=== PATIENT | female | born 1970 | race Caucasian/White ===

== ENCOUNTER 2023-12-28 14:09 | Outpatient (AMB) | payer MEDICARE, MEDICAID, SELFPAY ==
--- NOTE | 2023-12-28 14:14 | A.OFFVIS_ITS ---
Vital Signs 12/28/23 14:29 Height 5 ft 0.5 in Weight 275 lb 8 oz BMI 52.9 BP 150/80 H Blood Pressure Location Lt brachial Position Sitting Respiration 17 Pulse 66 Pulse Source Pulse Oximeter Pulse Oximetry (%) 95 Oxygen Delivery Method Room Air Intake Visit Reasons: Bilateral Genicular Nerve Cryoblation for knee Intake Note: Patient comes in for initial visit was referred by [facility] primary care. Reports pain 8-9/10. Allergies Sulfa (Sulfonamide Antibiotics) Allergy (Unknown, Verified 12/28/23 14:18) Rash HPI Comments Details: Ines is very pleasant 53 years old female who is in my office today with complains on pain in bilateral knees left more than the right. She reports that her pain started 10 years ago. She reported that she had tear of the ligament in the left knee. She had arthroscopy surgery on the left knee. She reports today that her pain is 8 to of 10 more on the left and less on the right. She can not sleep normally because of her pain but she can not do activities of daily living she can not take care of herself she can not plus-minus function normally. 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 She is on permanent disability because of multiple sclerosis. Heat applications and cold applications aggravate her pain. No pain alleviation from topical medication she is taking large doses of the Tylenol 1500 mg twice a day. She never tried NSAIDs. She tried Aspercreme with lidocaine without success. She reports her pain in terms of tissue damage as pulsing, throbbing, pounding, shooting, stabbing, lancinating, sharp, cutting, lacerating, dull, hurting, aching, heavy, tiring, exhausting. She had x-ray of the bilateral knees and results are dictated as below. She had physical therapy several times the last one 7 years ago and it did not alleviate her pain at all. In fact patient reports that physical therapy aggravated her pain to the point that today patient is refusing even to hear about physical therapy. She received no chiropractic manipulations she did not have any massage therapy, she did not try any homeopathic or herbal medications. She received steroid knee injections initially they were successful to treat her pain in the knee however later on those became ineffective. She received viscoelastic injections in bilateral knees without success. She is suffering from multiple sclerosis no other past medical history. She had knee arthroscopy as dictated above she denies smoking cigarettes denies drinking alcohol denies caffeinated beverages denies soda denies recreational drugs. [facility] Family History (Updated 12/28/23 @ 14:26 by Brenna Guthrie) Mother Skin cancer Breast cancer Maternal Aunt Breast cancer Maternal Uncle Cancer Father MS (mitral stenosis) Social History (Updated 12/28/23 @ 14:20 by Brenna Guthrie) Alcohol intake: current Patient Tobacco Use Status: Never used Tobacco Review of Systems Const Denies chills, Reports excessive sweating, Denies fatigue, Denies fever(s) and Reports weight gain Eyes Denies blurry vision, Denies exophthalmos and Denies diplopia ENT Reports Normal hearing present, Denies vertigo and Denies dizziness Card Denies chest pain, Denies chest pain at rest, Denies chest pain with activity, Reports diaphoresis, Denies syncope, Denies rapid heart rate, Denies pedal edema and Denies edema Resp Denies chest congestion, Denies cough, Denies hemoptysis, Denies excessive phlegm production, Denies pain on inspiration and Denies pain with cough GI Denies abdominal pain, Denies belching, Denies melena and Denies bloating Denies urinary incontinence Musc Denies as per HPI and Denies back pain Neuro Reports Normal hearing present, Denies Abnormal speech present, Denies confusion, Denies vertigo, Denies dizziness, Denies syncope, Denies lack of coordination and Denies Sensory deficit (Neuro) Psych Denies no additional complaints, Denies confusion and Denies depression Endo Denies deepening of the voice, Reports excessive sweating, Denies fatigue and Denies polyuria Physical Exam Vital Signs: Last Vital Signs Pulse 66 12/28/23 14:29 Resp 17 12/28/23 14:29 BP 150/80 H 12/28/23 14:29 Pulse Ox 95 12/28/23 14:29 Oxygen Delivery Method Room Air 12/28/23 14:29 BMI result Body Mass Index 52.9 Const General: No confusion Nutritional Appearance: obese morbidly obese Orientation/consciousness: No confusion Eyes General: appearance normal, both eyes and all related structures Pupils: Equal, round and reactive pupils present EOM: EOMs intact bilaterally Neck Neck: Yes full ROM Chest Chest palpation & inspection: normal inspection of the chest Resp Effort & Inspection: normal respiratory effort, able to speak in complete sentences, normal respiratory pattern, no audible wheezes and no cough Cardio Jugular venous distension: no JVD GI Inspection: Yes normal to inspection Neuro General: No confusion Cranial nerves: Yes Equal, round and reactive pupils present and Yes Normal hearing present Speech: No Abnormal speech present Gait exam (Neuro): Normal gait present Motor exam (neuro): 5/5 motor strength present throughout Sensory Exam: No Sensory deficit (Neuro) Extrem Other: Bilateral knee inspections the skin of the knees intact without rashes or lesions. Varus deformity bilaterally range of motion is preserved bilaterally however painful. Stress varus exhibit no changes bilaterally but valgus stress shows laxity. Anterior posterior drawers are intact. Tenderness on palpation on the medial side of the joint on the left no pain with external or internal rotation of the hip. On the right knee tenderness along the medial joint line. No pain with patellar compression on translation. General: No pedal edema Psych Speech and movement: Normal speech and movement present Affect: normal affect Attitude: cooperative Thought process: Normal thought process present Thought content: Normal thought content present Insight: Good insight present (Psych) Judgement: Good judgement present (Psych) Results Reviewed Results Reviewed: Knee x-ray 08/08/2023 findings: Severe narrowing through the medial compartment of bilateral knees, slightly greater on the left as compared to the right. Elizondo view shows [id number] articulation medial compartment both knees, moderate narrowing throughout the patellofemoral compartment with marginal osteophyte formation. Impression: Severe medial compartment DJD bilateral knees. Assessment & Plan Assessment & Plan (1) Osteoarthritis of knees, bilateral: Code(s): M17.0 - Bilateral primary osteoarthritis of knee Category: Medical (2) Bilateral knee pain: Code(s): M25.561 - Pain in right knee; M25.562 - Pain in left knee Category: Medical (3) Chronic pain syndrome: Code(s): G89.4 - Chronic pain syndrome Category: Medical Plan Brochures on sprint PNS and cure on X PNS were given to the patient. The nature of the procedures were explained to the patient. RFA also was explained to the patient. Nature of the intra-articular PRP injection was explained to the patient. The patient will not be able to afford PRP. RFA details were carefully explained to the patient. After that patient decided to go for neuromodulation right away. I will schedule the patient for diagnostic left infrapatellar saphenous nerve block to find if she will be eligible for sprint PNS versus cure on X PNS. The follow-up appointment will be scheduled immediately with the diagnostic injection. I can try to start her on Celebrex she reported that she never took Celebrex before. I requested her to ask her new neurologist who treats her multiple sclerosis to decide whether or not Celebrex is contraindicated for her condition. If it is not I will send Celebrex prescription. Patient Instructions: I here by testify that I spent 45 minutes in conversation with this patient as well as planning her care evaluating her prior records and organizing this note. Coding Level of Care Code New Pt Level 4 (02106) Diagnoses Osteoarthritis of knees, bilateral M17.0 Bilateral knee pain M25.561; M25.562 Chronic pain syndrome G89.4
[2023-12-28 14:29] VITALS: BP 150/80; PULSE 66; RESP 17; O2SAT 95; BMI 52.9
== END 2023-12-28 14:49 | disposition home or self-care (01) ==
PROVIDERS: Visit Provider Anesthesiology
DX: M17.0 Bilateral primary osteoarthritis of knee (principal); M25.561 Pain in right knee; M25.562 Pain in left knee; G89.4 Chronic pain syndrome
CPT/HCPCS: 99204

== ENCOUNTER → 2023-12-28 14:09 | Outpatient (BNVA) | payer MEDICARE, MEDICAID, SELFPAY | PROVIDERS: Visit Provider Anesthesiology | DX: M17.0 Bilateral primary osteoarthritis of knee (principal); M25.561 Pain in right knee; M25.562 Pain in left knee; G89.4 Chronic pain syndrome | CPT/HCPCS: 99202 ==

== ENCOUNTER 2024-03-06 06:27 | Outpatient (REF) | payer MEDICARE, MEDICAID, SELFPAY ==
--- NOTE | ~2024-03-06 | FL_ITS ---
EXAMINATION: XR FLUOROSCOPY WITH IMAGES CLINICAL INFORMATION: Primary osteoarthritis of bilateral knee COMPARISON: None available. TECHNIQUE: Fluoroscopy provided to: Dr. Jimenez Fluoroscopy time: 0.2 minutes DAP: 0.0480 mGycm2 Images: 2 FINDINGS: AP and lateral spot views left knee during pes anserine bursal injection. FL/FL guidance in treatment room IMPRESSION: Fluoroscopic guidance. Please refer to the full operative report for details. Electronically signed by: Forrest Deleon MD 05/04/2024 02:18 PM EDT
== END 2024-03-06 06:28 | disposition home or self-care (01) ==
LOC: CF 06:27
PROVIDERS: Visit Provider Anesthesiology
DX: M17.0 Bilateral primary osteoarthritis of knee (principal); G89.4 Chronic pain syndrome
CPT/HCPCS: 64450; J2795

== ENCOUNTER 2024-03-06 11:02 | Outpatient (AMB) | payer MEDICARE, MEDICAID, SELFPAY ==
--- NOTE | 2024-03-06 11:02 | A.OFFVIS_ITS ---
Vital Signs 03/06/24 11:10 03/06/24 13:37 Height 5 ft 0.5 in Weight 275 lb BMI 52.8 BP 161/90 H 152/88 H Blood Pressure Location Lt radial Lt brachial Position Sitting Sitting Respiration 16 16 Pulse 70 65 Pulse Source Pulse Oximeter Pulse Oximeter Pulse Oximetry (%) 98 98 Oxygen Delivery Method Room Air Room Air Comment Pre-Op post-op Intake Visit Reasons: LEFT INFRAPATELLAR SNB Contracts Administrator Required: No Accompanied by: Self / Same As Patient Allergies Sulfa (Sulfonamide Antibiotics) Allergy (Unknown, Verified 03/06/24 11:22) Rash PFSH Family History (Updated 12/28/23 @ 14:26 by Brenna Guthrie) Mother Skin cancer Breast cancer Maternal Aunt Breast cancer Maternal Uncle Cancer Father MS (mitral stenosis) Social History (Updated 12/28/23 @ 14:20 by Brenna Guthrie) Alcohol intake: current Patient Tobacco Use Status: Never used Tobacco Physical Exam Vital Signs: Last Vital Signs Pulse 65 03/06/24 13:37 Resp 16 03/06/24 13:37 BP 152/88 H 03/06/24 13:37 Pulse Ox 98 03/06/24 13:37 Oxygen Delivery Method Room Air 03/06/24 13:37 BMI result Body Mass Index 52.8 Assessment & Plan Assessment & Plan (1) Osteoarthritis of knees, bilateral: Code(s): M17.0 - Bilateral primary osteoarthritis of knee Category: Medical Plan: Left diagnostic genicular nerve block. Informed consent was explained to the patient. All questions were explained and answered. The patient was taken inside the operating room. The patient was positioned supine on operating table with her left leg elevated on a gel bin. Time-out was performed delineating correct site, side, the nature of the procedure, patient's allergy, . All operating room staff was participating in OR time-out procedure. C-arm was brought over the operating field and picture of the left knee was demonstrated on the screen. Anterolateral and anteromedial surfaces of the knee as well as lower leg and the lower thigh were prepped with chloroprep and draped with utility towels. The point of interest were delineated for: FOR: For inferior medial genicular nerve (infrapatellar saphenous nerve) the point of interest was delineated as connection of metaphysis of the proximal tibia on the medial side with corresponding diaphysis of the same bone. The projections of the points of interest on anterior surface of the left knee was injected with small amount of lidocaine 2% 1-to 2 ml. After that to needles 22 gauge 3-1/2 inch long were driven to were the point of interest in tunnel vision fashion. When the needle gently contacted the bones the C arm view was turned lateral , care was taken to superimpose condyles of the knee. With condyles superimpsed the needles were adjusted the way the tips of the needle positioned at the middle of the shaft of the bone. After that injection of ropivacaine o.5% 1 to 1.5 mls was performed . the needle was removed and bandaids were applied. the patient tolerated the procedure very well. (2) Bilateral knee pain: Code(s): M25.561 - Pain in right knee; M25.562 - Pain in left knee Category: Medical (3) Chronic pain syndrome: Code(s): G89.4 - Chronic pain syndrome Category: Medical Plan Brochures on sprint PNS and cure on X PNS were given to the patient. The nature of the procedures were explained to the patient. RFA also was explained to the patient. Nature of the intra-articular PRP injection was explained to the patient. The patient will not be able to afford PRP. RFA details were carefully explained to the patient. After that patient decided to go for neuromodulation right away. I will schedule the patient for diagnostic left infrapatellar saphenous nerve block to find if she will be eligible for sprint PNS versus cure on X PNS. The follow-up appointment will be scheduled immediately with the diagnostic injection. I can try to start her on Celebrex she reported that she never took Celebrex before. I requested her to ask her new neurologist who treats her multiple sclerosis to decide whether or not Celebrex is contraindicated for her condition. If it is not I will send Celebrex prescription. Orders: Orders FL guidance in treatment room Today M17.0 - Bilateral primary osteoarthritis of knee Coding Level of Care Code Procedure Only Diagnoses Osteoarthritis of knees, bilateral M17.0 Bilateral knee pain M25.561; M25.562 Chronic pain syndrome G89.4
[2024-03-06 11:10] VITALS: BP 161/90; PULSE 70; RESP 16; O2SAT 98; BMI 52.8
[2024-03-06 13:37] VITALS: BP 152/88; PULSE 65; RESP 16; O2SAT 98
== END 2024-03-06 11:47 | disposition home or self-care (01) ==
PROVIDERS: Visit Provider Anesthesiology
DX: M25.562 Pain in left knee (principal); M17.0 Bilateral primary osteoarthritis of knee; G89.4 Chronic pain syndrome
CPT/HCPCS: 64450; 77002

== ENCOUNTER 2024-03-08 10:27 | Outpatient (AMB) | payer MEDICARE, MEDICAID, SELFPAY ==
--- NOTE | 2024-03-08 10:29 | A.OFFVIS_ITS ---
Vital Signs 03/08/24 10:40 Height 5 ft 0.5 in Weight 269 lb 4 oz BMI 51.7 BP 164/65 H Blood Pressure Location Lt brachial Position Sitting Respiration 16 Pulse 66 Pulse Source Pulse Oximeter Pulse Oximetry (%) 96 Oxygen Delivery Method Room Air Intake Visit Reasons: LEFT INFRAPATELLAR SNB/OK PER DR. CHANDRA Intake Note: Patient comes in for post-op. Reports pain 3/10. Allergies Sulfa (Sulfonamide Antibiotics) Allergy (Unknown, Verified 03/08/24 10:40) Rash HPI Comments Details: Ines is back in my office after diagnostic infrapatellar saphenous left injection. That was diagnostic injection not containing any steroids. She reports that immediately after the procedure her pain was 7 to 6/10 similar to what she had before procedure. However her chronic pain is approximately corresponding to the site of the injection and needle insertion. Therefore it probably was hard for her to differentiate between the chronic pain and aggravation of the pain on the injection. She reported that by the 6 hours after the procedure her pain became 3/10. She reported that she did not have to take her Celebrex for the next 2 days she stated that she not take Tylenol either. She reported that before the injection she was not able to walk around the store or stand for long period of time. Yesterday she went into the store and she was walking and standing without significant difficulty. She reports now 2-3 out of 10 pain with activities and 0 pain without any activities. I think she will be a good candidate for cure on X PNS infrapatellar saphenous positioned. She will be scheduled for psychological evaluation, after that she will be scheduled for a trial of cure on X PNS. Prior: pain in bilateral knees left more than the right. She reports that her pain started 10 years ago. She reported that she had tear of the ligament in the left knee. She had arthroscopy surgery on the left knee. She is on permanent disability because of multiple sclerosis. Heat applications and cold applications aggravate her pain. No pain alleviation from topical medication she is taking large doses of the Tylenol 1500 mg twice a day. She never tried NSAIDs but she took Celebrex prescribed by PCP which helped her pain minimally. She tried Aspercreme with lidocaine without success. She had x-ray of the bilateral knees and results are dictated as below. She had physical therapy several times the last one 7 years ago and it aggravated her pain. Since then patient refused to go for physical therapy. She received steroid knee injections initially they were successful to treat her pain in the knee however later on those became ineffective. She received viscoelastic injections in bilateral knees without success. She is suffering from multiple sclerosis no other past medical history. [facility] Family History (Updated 12/28/23 @ 14:26 by Brenna Guthrie) Mother Skin cancer Breast cancer Maternal Aunt Breast cancer Maternal Uncle Cancer Father MS (mitral stenosis) Social History (Updated 12/28/23 @ 14:20 by Brenna Guthrie) Alcohol intake: current Patient Tobacco Use Status: Never used Tobacco Review of Systems Const All systems reviewed & are unremarkable except as noted in HPI and below ENT Reports Normal hearing present Neuro Reports Normal hearing present, Denies Abnormal speech present, Denies confusion and Denies Sensory deficit (Neuro) Psych Denies confusion Physical Exam Vital Signs: Last Vital Signs Pulse 66 03/08/24 10:40 Resp 16 03/08/24 10:40 BP 164/65 H 03/08/24 10:40 Pulse Ox 96 03/08/24 10:40 Oxygen Delivery Method Room Air 03/08/24 10:40 BMI result Body Mass Index 51.7 Const General: No confusion Nutritional Appearance: obese morbidly obese Orientation/consciousness: No confusion Eyes General: appearance normal, both eyes and all related structures Pupils: Equal, round and reactive pupils present EOM: EOMs intact bilaterally Neck Neck: Yes full ROM Chest Chest palpation & inspection: normal inspection of the chest Resp Effort & Inspection: normal respiratory effort, able to speak in complete sentences, normal respiratory pattern, no audible wheezes and no cough Cardio Jugular venous distension: no JVD GI Inspection: Yes normal to inspection Neuro General: No confusion Cranial nerves: Yes Equal, round and reactive pupils present and Yes Normal hearing present Speech: No Abnormal speech present Gait exam (Neuro): Normal gait present Motor exam (neuro): 5/5 motor strength present throughout Sensory Exam: No Sensory deficit (Neuro) Extrem Other: Bilateral knee inspections the skin of the knees intact without rashes or lesions. Varus deformity bilaterally range of motion is preserved bilaterally however painful. Stress varus exhibit no changes bilaterally but valgus stress shows laxity. Anterior posterior drawers are intact. Tenderness on palpation on the medial side of the joint on the left no pain with external or internal rotation of the hip. On the right knee tenderness along the medial joint line. No pain with patellar compression on translation. General: No pedal edema Psych Speech and movement: Normal speech and movement present Affect: normal affect Attitude: cooperative Thought process: Normal thought process present Thought content: Normal thought content present Insight: Good insight present (Psych) Judgement: Good judgement present (Psych) Results Reviewed Results Reviewed: Knee x-ray 08/08/2023 findings: Severe narrowing through the medial compartment of bilateral knees, slightly greater on the left as compared to the right. Elizondo view shows [id number] articulation medial compartment both knees, moderate narrowing throughout the patellofemoral compartment with marginal osteophyte formation. Impression: Severe medial compartment DJD bilateral knees. Assessment & Plan Assessment & Plan (1) Osteoarthritis of knees, bilateral: Code(s): M17.0 - Bilateral primary osteoarthritis of knee Category: Medical (2) Bilateral knee pain: Code(s): M25.561 - Pain in right knee; M25.562 - Pain in left knee Category: Medical (3) Chronic pain syndrome: Code(s): G89.4 - Chronic pain syndrome Category: Medical Plan I will schedule this patient for psychological evaluation with [employer] psychology. After that I will schedule her for a trial of cure on X PNS on the left. The results of the infrapatellar saphenous injection is very promising for this patient especially in the relation to her mobility and activities of daily living. The trial will be scheduled after [employer] psychology will approve her for the procedure. Coding Level of Care Code Est Pt Level 3 (52422) Diagnoses Osteoarthritis of knees, bilateral M17.0 Bilateral knee pain M25.561; M25.562 Chronic pain syndrome G89.4
[2024-03-08 10:40] VITALS: BP 164/65; PULSE 66; RESP 16; O2SAT 96; BMI 51.7
== END 2024-03-08 10:49 | disposition home or self-care (01) ==
PROVIDERS: Visit Provider Anesthesiology
DX: M17.0 Bilateral primary osteoarthritis of knee (principal); M25.561 Pain in right knee; M25.562 Pain in left knee; G89.4 Chronic pain syndrome
CPT/HCPCS: 99213

== ENCOUNTER → 2024-03-08 10:27 | Outpatient (BNVA) | payer MEDICARE, MEDICAID, SELFPAY | PROVIDERS: Visit Provider Anesthesiology | DX: M17.0 Bilateral primary osteoarthritis of knee (principal); M25.561 Pain in right knee; M25.562 Pain in left knee; G89.4 Chronic pain syndrome | CPT/HCPCS: 99212 ==

== ENCOUNTER 2024-04-05 11:33 | Outpatient (AMB) | payer MEDICARE, MEDICAID, SELFPAY ==
[2024-04-05 11:41] VITALS: BP 153/83; PULSE 63; O2SAT 96; BMI 53.7
--- NOTE | 2024-04-05 11:41 | MHC.OFFVIS ---
Vital Signs 04/05/24 11:41 Height 5 ft Weight 275 lb BMI 53.7 BP 153/83 H Blood Pressure Location Rt brachial Position Sitting Pulse 63 Pulse Source Pulse Oximeter Pulse Oximetry (%) 96 Oxygen Delivery Method Room Air Intake Visit Reasons: LEFT INFRAPATELLAR SNB Allergies Sulfa (Sulfonamide Antibiotics) Allergy (Unknown, Verified 04/05/24 11:42) Rash Medication List - Last Reconciled 04/05/24 by Janet Castellanos celecoxib 200 mg PO BID PRN dimethyl fumarate mg PO esomeprazole magnesium 20 mg PO DAILY levothyroxine mcg PO oxybutynin chloride ER 15 mg PO DAILY sertraline mg PO HPI Comments Details: Ines presents back to the office today for follow-up, questions regarding pending chronic PNS device Patient is status post left diagnostic infrapatellar saphenous nerve block. She reported good her leave after the injection. Subsequently followed up with Dr. Jimenez and was offered chronic PNS trial. She has completed [facility] Presents today to further discuss the chronic device in-depth Prior: Ines is back in my office after diagnostic infrapatellar saphenous left injection. That was diagnostic injection not containing any steroids. She reports that immediately after the procedure her pain was 7 to 6/10 similar to what she had before procedure. However her chronic pain is approximately corresponding to the site of the injection and needle insertion. Therefore it probably was hard for her to differentiate between the chronic pain and aggravation of the pain on the injection. She reported that by the 6 hours after the procedure her pain became 3/10. She reported that she did not have to take her Celebrex for the next 2 days she stated that she not take Tylenol either. She reported that before the injection she was not able to walk around the store or stand for long period of time. Yesterday she went into the store and she was walking and standing without significant difficulty. She reports now 2-3 out of 10 pain with activities and 0 pain without any activities. I think she will be a good candidate for cure on X PNS infrapatellar saphenous positioned. She will be scheduled for psychological evaluation, after that she will be scheduled for a trial of cure on X PNS. Prior: pain in bilateral knees left more than the right. She reports that her pain started 10 years ago. She reported that she had tear of the ligament in the left knee. She had arthroscopy surgery on the left knee. She is on permanent disability because of multiple sclerosis. Heat applications and cold applications aggravate her pain. No pain alleviation from topical medication she is taking large doses of the Tylenol 1500 mg twice a day. She never tried NSAIDs but she took Celebrex prescribed by PCP which helped her pain minimally. She tried Aspercreme with lidocaine without success. She had x-ray of the bilateral knees and results are dictated as below. She had physical therapy several times the last one 7 years ago and it aggravated her pain. Since then patient refused to go for physical therapy. She received steroid knee injections initially they were successful to treat her pain in the knee however later on those became ineffective. She received viscoelastic injections in bilateral knees without success. She is suffering from multiple sclerosis no other past medical history. [facility] Family History (Updated 12/28/23 @ 14:26 by Brenna Guthrie) Mother Skin cancer Breast cancer Maternal Aunt Breast cancer Maternal Uncle Cancer Father MS (mitral stenosis) Social History (Updated 12/28/23 @ 14:20 by Brenna Guthrie) Alcohol intake: current Patient Tobacco Use Status: Never used Tobacco Review of Systems Const All systems reviewed & are unremarkable except as noted in HPI and below Physical Exam Vital Signs: Last Vital Signs Pulse 63 04/05/24 11:41 BP 153/83 H 04/05/24 11:41 Pulse Ox 96 04/05/24 11:41 Oxygen Delivery Method Room Air 04/05/24 11:41 BMI result Body Mass Index 53.7 General: awake, alert, oriented. Answers questions appropriately. Fully engaged in examination. Skin: warm, dry, intact HEENT: Normocephalic. Hearing intact. Cardiac: External chest normal in appearance. Respiratory: No cough, audible wheezing or stridor. Abdomen: without gross distension. MS: No obvious swelling or deformities. Neurological: Oriented to person, place, time and situation. Thought process intact. No gait abnormalities appreciated. Psychiatric: Appropriate mood and affect. Good judgment and insight. Results Reviewed Results Reviewed: Knee x-ray 08/08/2023 findings: Severe narrowing through the medial compartment of bilateral knees, slightly greater on the left as compared to the right. Elizondo view shows [id number] articulation medial compartment both knees, moderate narrowing throughout the patellofemoral compartment with marginal osteophyte formation. Impression: Severe medial compartment DJD bilateral knees. Assessment & Plan Assessment & Plan (1) Osteoarthritis of knees, bilateral: Code(s): M17.0 - Bilateral primary osteoarthritis of knee Category: Medical (2) Bilateral knee pain: Code(s): M25.561 - Pain in right knee; M25.562 - Pain in left knee Category: Medical (3) Chronic pain syndrome: Code(s): G89.4 - Chronic pain syndrome Category: Medical Plan Ines presented to the office today for follow-up left knee pain Discussed in length the patient's diagnosis and treatment options including [facility] PNS. Pamphlet was reviewed, patient was provided detailed information to review on the [employer] website. Patient would like to proceed with the procedure. Will schedule for left saphenous nerve [facility]ix PNS trial with fluoroscopy guidance and sedation All questions and concerns were answered, patient agrees to the plan. Follow up after procedure, sooner if needed Coding Level of Care Code Est Pt Level 3 (01169) Complex EM visit Add On G2211 Diagnoses Osteoarthritis of knees, bilateral M17.0 Bilateral knee pain M25.561; M25.562 Chronic pain syndrome G89.4
== END 2024-04-05 11:58 | disposition home or self-care (01) ==
PROVIDERS: Visit Provider Registered Nurse Emergency
DX: M17.0 Bilateral primary osteoarthritis of knee (principal); M25.561 Pain in right knee; M25.562 Pain in left knee; G89.4 Chronic pain syndrome
CPT/HCPCS: 99213; G2211

== ENCOUNTER → 2024-04-05 11:33 | Outpatient (BNVA) | payer MEDICARE, MEDICAID, SELFPAY | PROVIDERS: Visit Provider Registered Nurse Emergency | DX: M17.0 Bilateral primary osteoarthritis of knee (principal); G89.4 Chronic pain syndrome | CPT/HCPCS: 99212 ==